=== PATIENT | female | born 1960 | race American Indian/Alaskan Native ===

== ENCOUNTER 2017-07-01 13:22 | Emergency (ER) | payer BC ==
[2017-07-01 14:00] VITALS: BMI 29.9
[2017-07-01 14:09] VITALS: O2SAT 98
--- NOTE | 2017-07-01 15:51 | C.PDOC ---
History Of Present Illness 57 y/o female presents to the ER complaining of sore throat with painful swallowing which has been present for the past 2 days. Patient notes that she has more throat pain at night. Patient denies having fever and chills. Time Seen by Provider: 07/01/17 14:30 Chief Complaint (Nursing): ENT Problem History Per: Patient History/Exam Limitations: None Onset/Duration Of Symptoms: Days Current Symptoms Are (Timing): Still Present Severity: Moderate Past Medical History Reviewed: Historical Data, Nursing Documentation, Vital Signs Vital Signs: Last Vital Signs Temp 98.4 F 07/01/17 15:56 Pulse 71 07/01/17 15:56 Resp 20 07/01/17 15:56 BP 113/78 07/01/17 15:56 Pulse Ox 98 07/01/17 16:50 - Medical History PMH: HTN Denies: HIV, Chronic Kidney Disease Other Surgeries: Hx of surgeries Family History: States: No Known Family Hx - Social History Hx Alcohol Use: Yes Hx Substance Use: No - Immunization History Hx Tetanus Toxoid Vaccination: No Hx Influenza Vaccination: No Hx Pneumococcal Vaccination: No Review Of Systems Except As Marked, All Systems Reviewed And Found Negative. Constitutional: Negative for: Fever, Chills ENT: Positive for: Throat Pain Physical Exam - Physical Exam Appears: Non-toxic, No Acute Distress Skin: Normal Color, Warm Head: Atraumatic, Normacephalic Eye(s): bilateral: Normal Inspection Ear(s): Bilateral: Normal Nose: Normal Oral Mucosa: Moist, No Drooling Throat: Erythema, Exudate Neck: Supple Chest: Symmetrical Cardiovascular: Rhythm Regular Respiratory: Normal Breath Sounds, No Rales, No Rhonchi, No Wheezing, Other ( normal voice, speaking in full sentences, no difficulty breathing) Extremity: Normal ROM Neurological/Psych: Oriented x3, Normal Speech ED Course And Treatment O2 Sat by Pulse Oximetry: 98 (RA) Pulse Ox Interpretation: Normal Progress Note: Patient given Amoxicillin PO and Motrin PO. Patient discharged and told to follow up with PMD in 1-2 days. Disposition - Disposition Disposition: HOME/ ROUTINE Disposition Time: 15:49 Condition: STABLE Additional Instructions: Follow up with PMD within 1-2 days. Return to ED if feel worse. 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 - Scribe Statement The provider has reviewed the documentation as recorded by the Haylee Ramos Provider Attestation All medical record entries made by the Charliibe were at my direction and personally dictated by me. I have reviewed the chart and agree that the record accurately reflects my personal performance of the history, physical exam, medical decision making, and the department course for this patient. I have also personally directed, reviewed, and agree with the discharge instructions and disposition.
[2017-07-02 11:13] VITALS: BP 113/78; PULSE 71; RESP 20; TEMP 98.4
== END 2017-07-01 15:57 | disposition home or self-care (01) ==
LOC: C.ER 13:22
DX: J02.9 Acute pharyngitis, unspecified (principal); I10 Essential (primary) hypertension

== ENCOUNTER 2017-08-29 12:00 | Emergency (ER) | payer BC ==
[2017-08-29 12:00] VITALS: BMI 29.9
[2017-08-29 12:09] VITALS: BP 121/74; PULSE 68; RESP 18; TEMP 98.1; O2SAT 100
--- NOTE | 2017-08-29 12:23 | C.PDOC ---
History Of Present Illness CO INTERMIT R BREAST NIPPLE FLATTENING X SEV WEEKS. NO PAIN, SWELL, MASS, DC, OTHER ASSOC SX. SP MAMMO 11/2016 EXAM NAD NONTOXIC BREAST: B/L BREASTS DENSE, LARGE. NO GROSS ABN, ASYM. NO GROSS B/L NIPPLE ASYM. BL NO NIPPLE DC, TEND. NO GROSSLY PALP MASS. NODES NO PALP AXILLA, CLAVICULAR, NODES B/L SKIN MULT SCATTERED MOLES. WELL DEMARCATED BORDERS, INTACT NO ERYTHEMA. REMAINDER NEG MDM NO GROSS SIGNS INFXN, MASS. 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, REFER BREAST SURG Time Seen by Provider: 08/29/17 12:12 Chief Complaint (Nursing): Breast Problem History Per: Patient History/Exam Limitations: no limitations Onset/Duration Of Symptoms: Other (Several Weeks) Current Symptoms Are (Timing): Still Present Past Medical History Reviewed: Historical Data, Nursing Documentation, Vital Signs Vital Signs: Last Vital Signs Temp 98.1 F 08/29/17 12:06 Pulse 68 08/29/17 12:06 Resp 18 08/29/17 12:06 BP 121/74 08/29/17 12:06 Pulse Ox 100 08/29/17 12:32 - Medical History PMH: HTN Denies: HIV, Chronic Kidney Disease Other Surgeries: Hx of surgeries Family History: States: No Known Family Hx - Social History Hx Alcohol Use: Yes Hx Substance Use: No - Immunization History Hx Tetanus Toxoid Vaccination: No Hx Influenza Vaccination: No Hx Pneumococcal Vaccination: No Review Of Systems Except As Marked, All Systems Reviewed And Found Negative. Skin: Positive for: Other (Right breast nipple flattening, no pain, no swelling , no mass, no discharge) Physical Exam - Physical Exam Appears: Non-toxic, No Acute Distress Skin: Normal Color, Warm, Dry, Other (Multiple scattered moles, well demarcated borders, no erythema ) Head: Atraumatic Neck: Supple Lymphatic: Other (NODES NO PALP AXILLA, CLAVICULAR, NODES B/L) Chest: Other (BREAST: B/L BREASTS DENSE, LARGE. NO GROSS ABN, ASYM. NO GROSS B/ L NIPPLE ASYM. BL NO NIPPLE DC, TEND. NO GROSSLY PALP MASS. ) Respiratory: Other (NARD) Neurological/Psych: Oriented x3, Normal Speech ED Course And Treatment O2 Sat by Pulse Oximetry: 100 (RA) Pulse Ox Interpretation: Normal Medical Decision Making Medical Decision Making: NO GROSS SIGNS INFXN, MASS. 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, REFER BREAST SURG Disposition Counseled Patient/Family Regarding: Diagnosis, Need For Followup - Disposition Referrals: Silke Soto MD [Staff Provider] - your,dental professional [Other] Disposition: HOME/ ROUTINE Disposition Time: 12:31 Condition: GOOD Instructions: Common Breast Problems Forms: [facility] (Uzbek) - Clinical Impression Clinical Impression: Nipple retraction - Scribe Statement The provider has reviewed the documentation as recorded by the Scribe (Joaquina Shabazz) Provider Attestation: All medical record entries made by the Scribe were at my direction and personally dictated by me. I have reviewed the chart and agree that the record accurately reflects my personal performance of the history, physical exam, medical decision making, and the department course for this patient. I have also personally directed, reviewed, and agree with the discharge instructions and disposition.
== END 2017-08-29 12:37 | disposition home or self-care (01) ==
LOC: C.ER 12:00
DX: N64.53 Retraction of nipple (principal)